=== PATIENT | male | born 1950 | race Caucasian/White ===

== ENCOUNTER → 2017-02-22 | Outpatient (REF) | payer MEDICARE, OTHER ==
[2017-02-22 12:40] LABS: ALBUMIN 3.7 GM/DL (3.2-5.2)
[2017-02-22 13:30] LABS: BASO % 0.5 % (0.0-1.0); EOS # 0.3 K/mm3 (0.0-0.50); LARGE UNSTAINED CELL # 0.1 K/mm3 (0.0-0.4); LARGE UNSTAINED CELL % 1.2 % (0.0-4.0); LYMPH # 1.4 K/mm3 (1.5-4.5); LYMPH % 19.7 % (24.0-44.0); MEAN CORPUSCULAR HEMOGLOBIN 30.8 pg (27.0-33.0); MEAN CORPUSCULAR HGB CONC 33.1 g/dl (32.0-36.5); MONO # 0.5 K/mm3 (0.0-0.8); MONO % 7.1 % (0.0-5.0); NEUTROPHILS # 4.5 K/mm3 (1.8-7.7); NEUTROPHILS % 66.6 % (36.0-66.0); PLATELET COUNT, AUTOMATED 216 k/mm3 (150-450); RED CELL DISTRIBUTION WIDTH 13.6 % (11.5-14.5); WHITE BLOOD COUNT 6.8 K/mm3 (4.0-10.0)
== END ==
LOC: M LABDRAW1 11:33
PROVIDERS: ATTEND Orthopaedic Surgery
DX: Z01.818 Encounter for other preprocedural examination (principal); M17.12 Unilateral primary osteoarthritis, left knee; M25.569 Pain in unspecified knee; D63.8 Anemia in other chronic diseases classified elsewhere; N18.9 Chronic kidney disease, unspecified

== ENCOUNTER → 2017-03-15 | Outpatient (REF) | payer MEDICARE, OTHER | LOC: M LAB REF 16:41 | PROVIDERS: ATTEND Internal Medicine | DX: Z86.14 Personal history of Methicillin resistant Staphylococcus aureus infection (principal) ==

== ENCOUNTER 2017-10-02 18:00 | Emergency (ER) | payer MEDICARE, OTHER, BC ==
[~2017-10-02] VITALS: Ht 177.8 cm; Wt 88.6 kg
[2017-10-02] MEDS ORDERED: MELO15TA4 PO (18:10)
[2017-10-02] MEDS ORDERED: BACL10TA2 PO (18:10)
[2017-10-02] MEDS ORDERED: MOME50SP (18:10)
[2017-10-02] MEDS ORDERED: AMBI5TAB PO (18:10)
[2017-10-02] MEDS ORDERED: SYMB80INH INH (18:10)
[2017-10-02] MEDS ORDERED: AMLO-310 PO (18:10)
[2017-10-02] MEDS ORDERED: LYRI200C PO (18:10)
[2017-10-02] MEDS ORDERED: PROAAER10 INH (18:10)
[2017-10-02 19:45] LABS: BASO % 0.5 % (0.0-1.0); EOS # 0.2 10^3/uL (0.0-0.50); EOS % 2.7 % (0.0-3.0); IMMATURE GRANULOCYTE % 0.2 % (0-0); LYMPH # 1.3 10^3/uL (1.5-4.5); LYMPH % 14.8 % (24.0-44.0); MEAN CORPUSCULAR HEMOGLOBIN 30.8 pg (27.0-33.0); MEAN CORPUSCULAR HGB CONC 33.8 g/dl (32.0-36.5); MEAN CORPUSCULAR VOLUME 90.9 fl (80.0-96.0); MONO # 0.6 10^3/uL (0.0-0.8); MONO % 6.9 % (0.0-5.0); NEUTROPHILS # 6.5 10^3/uL (1.8-7.7); NEUTROPHILS % 74.9 % (36.0-66.0); PLATELET COUNT, AUTOMATED 242 10^3/uL (150-450); RED CELL DISTRIBUTION WIDTH 14.7 % (11.5-14.5); WHITE BLOOD COUNT 8.7 10^3/uL (4.0-10.0)
[2017-10-02] MEDS ORDERED: GASTROGRAFIN SOLUTION 30ML PO ONE (19:50)
[2017-10-02 19:56] LABS: ALBUMIN 3.8 GM/DL (3.2-5.2); ALBUMIN/GLOBULIN RATIO 1.06 (1.00-1.93); ALKALINE PHOSPHATASE 111 U/L (45-117); ALT/SGPT 27 U/L (12-78); AMYLASE 32 U/L (25-115); ANION GAP 9 MEQ/L (8-16); AST/SGOT 27 U/L (7-37); BILIRUBIN,DIRECT 0.2 MG/DL (0.0-0.2); BILIRUBIN,TOTAL 0.6 MG/DL (0.2-1.0); BLOOD UREA NITROGEN 15 MG/DL (7-18); CALCIUM LEVEL 8.8 MG/DL (8.8-10.2); CARBON DIOXIDE LEVEL 27 MEQ/L (21-32); CHLORIDE LEVEL 103 MEQ/L (98-107); GLOMERULAR FILTRATION RATE > 60.0 (>49); GLUCOSE, FASTING 104 MG/DL (80-110); POTASSIUM SERUM 4.2 MEQ/L (3.5-5.1); SODIUM LEVEL 139 MEQ/L (136-145); TOTAL PROTEIN 7.4 GM/DL (6.4-8.2)
[2017-10-02] MEDS ORDERED: GASTROGRAFIN SOLUTION 30ML (Q9963) PO ONE (20:20)
[2017-10-02] MEDS ORDERED: ISOVUE-370 76% 100ML VIAL (Q9967) As Ordered ONE (20:25)
--- NOTE | 2017-10-02 21:40 | REPUSA ---
CT of the abdomen and pelvis with contrast Clinical statement: Pain. Technique: Multiple axial CT images were obtained from the base of the lungs through the floor of the pelvis utilizing 5 mm axial slices after administration of nonionic intravenous contrast. Coronal an d sagittal reconstructions were also obtained. No comparison is available. Findings: Chest: The visualized lung bases are clear. Abdomen: The liver, spleen, pancreas, and adrenal glands are unremarkable. There is a 1.8 cm simple c yst in the anterior left kidney. Numerous small gallstones are seen within the gallbladder. No perich olecystic inflammatory changes are seen. There is no evidence of biliary ductal dilatation. The aorta is within normal limits. There is no evidence of abdominal lymphadenopathy or ascites. Pelvis: The bowel is unremarkable, with no obstructive or inflammatory changes. The urinary bladder i s within normal limits. The other pelvic structures appear grossly intact. There is no evidence of pe lvic lymphadenopathy or ascites. Bones: There are no suspicious osseous abnormalities seen. Severe multilevel degenerative disc diseas e is seen throughout the lumbar spine. Bilateral hip arthroplasties are in place. Impression: 1. No acute obstructive or inflammatory bowel changes. 2. No evidence of hydronephrosis. Simple left renal cyst. 3. Cholelithiasis, without evidence of acute cholecystitis. 4. 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 Bilateral hip art hroplasties are intact.
[2017-10-02 22:18] VITALS: BP 140/77
--- NOTE | 2017-10-03 05:53 | ECGEPIP ---
Stationary ECG Study [place] - ED Test Date: 2017-10-02 Pat Name: Janel AYALA Department: Room: - Gender: M Patient Registration Specialist: sb : 1950 Requested By: Des Owens Order Number: [id number] Reading MD: Des Dinero Measurements Intervals [place] Rate: 85 P: 34 NV: 183 QRS: -17 QRSD: 104 T: 8 QT: 366 QTc: 438 Interpretive Statements SINUS RHYTHM NO PRIORS FOR COMPARISON Electronically Signed On 10-03-2017 5:53:18 EST by Des Dinero
== END 2017-10-02 22:25 | disposition home or self-care (01) ==
LOC: M ED 18:00
DX: K80.20 Calculus of gallbladder without cholecystitis without obstruction (principal)
CPT/HCPCS: 74177; 80048; 80076; 82150; 82550; 82553; 83690; 84484; 85025; 93005; 99284; Q9963; Q9967

== ENCOUNTER 2017-11-24 09:03 | Day surgery (SDC) | payer MEDICARE, BC, OTHER ==
[2017-11-24] MEDS ORDERED: NS 1,000 ML IV (09:30)
[2017-11-24] MEDS ORDERED: LIDOCAINE 2% INJ 100 MG/5 ML SDV (FOR ANES.) As Ordered (10:43)
[2017-11-24] MEDS ORDERED: PROPOFOL 200 MG/20 ML VIAL As Ordered (10:43)
== END 2017-11-24 11:13 | disposition home or self-care (01) ==
LOC: M OPP 09:03
DX: R10.13 Epigastric pain (principal); K21.9 Gastro-esophageal reflux disease without esophagitis; K80.20 Calculus of gallbladder without cholecystitis without obstruction; I10 Essential (primary) hypertension; M19.90 Unspecified osteoarthritis, unspecified site; M54.5 Low back pain; J45.909 Unspecified asthma, uncomplicated; Z79.82 Long term (current) use of aspirin; Z79.899 Other long term (current) drug therapy; Z96.641 Presence of right artificial hip joint; Z96.642 Presence of left artificial hip joint; Z91.048 Other nonmedicinal substance allergy status
CPT/HCPCS: 43235

== ENCOUNTER → 2018-02-09 | Outpatient (REF) | payer MEDICARE, OTHER ==
[2018-02-11 00:06] LABS: CHROMIUM PLASMA 2.5 ug/L (0.1-2.1)
[2018-02-11 00:06] LABS: PLASMA COBALT 2.4 ug/L (0.0-0.9)
== END ==
LOC: M LABDRAW1 09:59
DX: T56.2X1A Toxic effect of chromium and its compounds, accidental (unintentional), initial encounter (principal); T56.891A Toxic effect of other metals, accidental (unintentional), initial encounter; X58.XXXA Exposure to other specified factors, initial encounter; Y92.89 Other specified places as the place of occurrence of the external cause
CPT/HCPCS: 82495

== ENCOUNTER → 2020-05-19 | Outpatient (REF) | payer MEDICARE, OTHER ==
[~2020-05-19] MED LIST: AMBI5TAB PO; AMLO-360 PO; BACL10TA2 PO; COLA100C5 PO; LYRI200C PO; MELO15TA28 PO; MOME50SP; PROAAER10 INH; SYMB80INH INH; TYLE650T35 PO
[2020-05-21 18:07] LABS: CHROMIUM PLASMA 3.1 ug/L (0.1-2.1)
== END ==
LOC: M LAB REF 12:16
PROVIDERS: ATTEND Internal Medicine
DX: M25.559 Pain in unspecified hip (principal); T56.891A Toxic effect of other metals, accidental (unintentional), initial encounter; T56.2X1A Toxic effect of chromium and its compounds, accidental (unintentional), initial encounter

== ENCOUNTER → 2020-07-09 | Outpatient (CLI) | payer MEDICARE, BC, OTHER ==
[~2020-07-09] MED LIST changes: +ACET650T61 PO; -TYLE650T35 PO
== END ==
LOC: M LABSMTC 10:00
PROVIDERS: ATTEND Pain Medicine Pain Medicine
DX: Z20.828 Contact with and (suspected) exposure to other viral communicable diseases (principal)
CPT/HCPCS: C9803; U0003

== ENCOUNTER → 2020-10-28 | Outpatient (CLI) | payer SELFPAY | LOC: M LABSMTC 09:55 | PROVIDERS: ATTEND Pediatrics | DX: Z11.59 Encounter for screening for other viral diseases (principal) ==

== ENCOUNTER → 2021-01-23 | Outpatient (CLI) | payer MEDICARE, BC, OTHER | LOC: M LABSMTC 09:35 | PROVIDERS: ATTEND Physical Medicine & Rehabilitation | DX: Z11.52 Encounter for screening for COVID-19 (principal) ==

== ENCOUNTER → 2021-04-23 | Outpatient (CLI) | payer MEDICARE, BC, OTHER ==
--- NOTE | 2021-04-23 12:13 | REP ---
INDICATION: MODERATE PERSISTENT ASTHMA, UNCOMPLICATED COMPARISON: 02/22/2006 TECHNIQUE: PA and lateral. FINDINGS: The mediastinum and cardiac silhouette are normal. The lung reno are clear and without acute consolidation, effusion, or pneumothorax. The skeletal structures are intact and normal. IMPRESSION: No acute cardiopulmonary process. <Electronically signed by Lokesh De La Cruz > 04/23/21 [id number]
== END ==
LOC: M RAD 11:50
PROVIDERS: ATTEND Internal Medicine Pulmonary Disease
DX: J45.40 Moderate persistent asthma, uncomplicated (principal)

== ENCOUNTER → 2021-07-17 | Outpatient (CLI) | payer MEDICARE, BC, OTHER ==
[~2021-07-17] MED LIST changes: +PANT40TA29 PO; +SUCR1TA PO
== END ==
LOC: M LABSMTC 09:40
PROVIDERS: ATTEND Anesthesiology
DX: Z01.818 Encounter for other preprocedural examination (principal); Z20.822 Contact with and (suspected) exposure to COVID-19

== ENCOUNTER 2021-07-22 09:48 | Day surgery (SDC) | payer MEDICARE, BC, OTHER ==
[~2021-07-22] VITALS: Ht 175.3 cm; Wt 87.7 kg
[~2021-07-22 09:48] MED LIST changes: +LIDOCAINE 2% 100MG/5ML SDV (FOR ANES.) As Ordered ONE; +NS 1,000 ML IV ONE; +propofoL 200 MG/20 ML VIAL As Ordered ONE
--- NOTE | 2021-07-22 11:31 | ROOR ---
Patient Name: Janel Jc Procedure Date: 07/22/2021 11:12 AM Date of : 1950 Age: 71 Room: [facility] Gender: Male Note Status: Finalized Procedure: Upper GI endoscopy Indications: Melena Providers: DO Chevy Borja MD: KELLY ESCALANTE JR, MD Requesting Provider: Medicines: Propofol per Anesthesia Complications: No immediate complications. Procedure: Pre-Anesthesia Assessment: - Prior to the procedure, a History and Physical was performed, and patient medications and allergies were reviewed. The patient is competent. The risks and benefits of the procedure and the sedation options and risks were discussed with the patient. All questions were answered and informed consent was obtained. Patient identification and proposed procedure were verified by the physician, the nurse, the route delivery service driver and the ophthalmology technician in the endoscopy suite. Mental Status Examination: alert and oriented. Airway Examination: normal oropharyngeal airway and neck mobility. Respiratory Examination: clear to auscultation. CV Examination: normal. Prophylactic Antibiotics: The patient does not require prophylactic antibiotics. Prior Anticoagulants: The patient has taken no previous anticoagulant or antiplatelet agents. ASA Grade Assessment: II - A patient with mild systemic disease. After reviewing the risks and benefits, the patient was deemed in satisfactory condition to undergo the procedure. The anesthesia plan was to use monitored anesthesia care (MAC). Immediately prior to administration of medications, the patient was re-assessed for adequacy to receive sedatives. The heart rate, respiratory rate, oxygen saturations, blood pressure, adequacy of pulmonary ventilation, and response to care were monitored throughout the procedure. The physical status of the patient was re-assessed after the procedure. The Endoscope was introduced through the mouth, and advanced to the second part of duodenum. The upper GI endoscopy was accomplished without difficulty. The patient tolerated the procedure well. Findings: One non-bleeding cratered duodenal ulcer was found in the duodenal bulb. Biopsies were taken with a cold forceps for histology. This was biopsied with a cold forceps for histology. Estimated blood loss was minimal. Impression: - Non-bleeding duodenal ulcer. Biopsied. Recommendation: - Patient has a contact number available for emergencies. The signs and symptoms of potential delayed complications were discussed with the patient. Return to normal activities tomorrow. Written discharge instructions were provided to the patient. - Await pathology results. - Return to my office at appointment to be scheduled. Procedure Code(s): --- Professional --- 86802, Esophagogastroduodenoscopy, flexible, transoral; with biopsy, single or multiple Diagnosis Code(s): --- Professional --- K26.9, Duodenal ulcer, unspecified as acute or chronic, without hemorrhage or perforation K92.1, Melena (includes Hematochezia) CPT copyright 2019 [employer]. All rights reserved. The codes documented in this report are preliminary and upon brewmaster review may be revised to meet current compliance requirements. Gabe Sinha DO 07/22/2021 11:30:47 AM Electronically signed by Gabe Sinha DO Number of Addenda: 0 Note Initiated On: 07/22/2021 11:12 AM Estimated Blood Loss: Estimated blood loss was minimal.
[2021-07-22 12:01] VITALS: BP 159/84
== END 2021-07-22 12:03 | disposition home or self-care (01) ==
LOC: M OPP 09:48
PROVIDERS: ATTEND Surgery
DX: K26.9 Duodenal ulcer, unspecified as acute or chronic, without hemorrhage or perforation (principal); K92.1 Melena; R12 Heartburn; Z79.899 Other long term (current) drug therapy; Z88.8 Allergy status to other drugs, medicaments and biological substances; Z91.048 Other nonmedicinal substance allergy status

== ENCOUNTER → 2022-04-29 | Outpatient (REF) | payer MEDICARE, OTHER ==
[~2022-04-29] MED LIST changes: -LIDOCAINE 2% 100MG/5ML SDV (FOR ANES.) As Ordered ONE; -MOME50SP; +NASO50SP3; -NS 1,000 ML IV ONE; -propofoL 200 MG/20 ML VIAL As Ordered ONE
[2022-05-06 11:10] LABS: CHROMIUM PLASMA 2.5 ug/L (0.1-2.1)
== END ==
LOC: M LABDRWCV 15:18
PROVIDERS: ATTEND Physician Assistant Surgical
DX: T56.2X1A Toxic effect of chromium and its compounds, accidental (unintentional), initial encounter (principal); T56.891A Toxic effect of other metals, accidental (unintentional), initial encounter; Z96.649 Presence of unspecified artificial hip joint

== ENCOUNTER → 2023-08-26 | Outpatient (REF) | payer MEDICARE, BC, OTHER | LOC: M LAB REF 16:28 | PROVIDERS: ATTEND Internal Medicine | DX: A40.0 Sepsis due to streptococcus, group A (principal); L03.031 Cellulitis of right toe ==

== ENCOUNTER → 2023-08-26 | Outpatient (CLI) | payer MEDICARE, BC, OTHER | LOC: M WHC 13:00 | PROVIDERS: ATTEND Internal Medicine | DX: M79.661 Pain in right lower leg (principal); R22.41 Localized swelling, mass and lump, right lower limb ==

== ENCOUNTER → 2023-09-01 | Outpatient (REF) | payer MEDICARE, OTHER | LOC: M LAB REF 12:01 | PROVIDERS: ATTEND Internal Medicine | DX: A40.0 Sepsis due to streptococcus, group A (principal); L03.031 Cellulitis of right toe ==

== ENCOUNTER → 2023-09-22 | Outpatient (REF) | payer MEDICARE, OTHER | LOC: M LAB REF 13:13 | PROVIDERS: ATTEND Internal Medicine | DX: L03.031 Cellulitis of right toe (principal) ==

== ENCOUNTER → 2023-10-04 | Outpatient (CLI) | payer MEDICARE, BC, OTHER | LOC: M RAD 11:02 | PROVIDERS: ATTEND Podiatrist Foot & Ankle Surgery | DX: I73.89 Other specified peripheral vascular diseases (principal); I70.201 Unspecified atherosclerosis of native arteries of extremities, right leg ==

== ENCOUNTER → 2023-10-25 | Outpatient (CLI) | payer MEDICARE, BC, OTHER | LOC: M RAD 11:41 | PROVIDERS: ATTEND Physician Assistant | DX: I73.9 Peripheral vascular disease, unspecified (principal); I83.009 Varicose veins of unspecified lower extremity with ulcer of unspecified site; L97.909 Non-pressure chronic ulcer of unspecified part of unspecified lower leg with unspecified severity; M79.604 Pain in right leg ==

== ENCOUNTER 2024-02-12 20:27 | Inpatient (IN) | payer MEDICARE, BC, OTHER ==
[~2024-02-12] VITALS: Ht 180.3 cm; Wt 93.3 kg
[2024-02-12 20:53] LABS: VENOUS BASE EXCESS 1.7 (-2.0-2.0); VENOUS HCO3 25.4 MMOL/L (23.0-27.0); VENOUS O2 SATURATION 89.7 % (60.0-80.0); VENOUS PARTIAL PRESSURE CO2 37.2 mmHg (38.0-50.0); VENOUS PARTIAL PRESSURE O2 55.1 mmHg (30.0-50.0); VENOUS PH 7.453 UNITS (7.330-7.430); VENOUS STANDARD HCO3 25.8 MMOL/L; VENOUS TOTAL CO2 26.6 MMOL/L (24.0-28.0)
[2024-02-12] MEDS: ACETAMINOPHEN TAB 650MG DOSE (2X325MG) PO ONE (20:53)
[2024-02-12 20:59] LABS: BASO % 0.3 % (0.0-1.0); EOS # 0.1 10^3/uL (0.0-0.5); EOS % 0.3 % (0.0-3.0); HEMATOCRIT 38.6 % (42.0-52.0); HEMOGLOBIN 13.4 g/dl (13.5-17.5); LYMPH # 0.6 10^3/uL (1.5-5.0); LYMPH % 4.2 % (24.0-44.0); MEAN CORPUSCULAR HEMOGLOBIN 30.8 pg (27.0-33.0); MEAN CORPUSCULAR HGB CONC 34.7 g/dl (32.0-36.5); MEAN CORPUSCULAR VOLUME 88.7 fl (80.0-96.0); MONO # 0.9 10^3/uL (0.0-0.8); MONO % 6.3 % (2.0-8.0); NEUTROPHILS # 12.7 10^3/uL (1.5-8.5); NEUTROPHILS % 88.2 % (36.0-66.0); PLATELET COUNT, AUTOMATED 195 10^3/uL (150-450); RED BLOOD COUNT 4.35 10^6/uL (4.30-6.10); WHITE BLOOD COUNT 14.4 10^3/uL (4.0-10.0)
[2024-02-12] MEDS: diphenhydrAMINE 25MG CAP PO SCH (21:00)
[2024-02-12 21:09] LABS: APPEARANCE, URINE CLEAR (CLEAR); BACTERIA, URINE AUTO NEGATIVE (NEGATIVE); BILIRUBIN, URINE AUTO NEGATIVE (NEGATIVE); BLOOD, URINE BLOOD NEGATIVE (NEGATIVE); COLOR, URINE YELLOW (YELLOW); GLUCOSE, URINE (UA) AUTO NEGATIVE (NEGATIVE); KETONE, URINE AUTO TRACE mg/dL (NEGATIVE); LEUKOCYTE ESTERASE, URINE AUTO NEGATIVE (NEGATIVE); MUCUS, URINE SMALL (NEGATIVE); NITRITE, URINE AUTO NEGATIVE (NEGATIVE); PROTEIN, URINE AUTO 1+ mg/dL (NEGATIVE); RBC, URINE AUTO 1 /HPF (0-3); SPECIFIC GRAVITY URINE AUTO 1.019 (1.002-1.035); SQUAMOUS EPITHELIAL CELL UR AU 0 /HPF (0-6); UROBILINOGEN, URINE AUTO 0.2 mg/dL (0.0-2.0); WBC, URINE AUTO 0 /HPF (0-3)
[2024-02-12 21:11] LABS: INR 1.09; PARTIAL THROMBOPLASTIN TIME 29.7 SECONDS (24.8-34.2); PROTHROMBIN TIME 13.8 SECONDS (12.5-14.5)
[2024-02-12 21:35] LABS: CK-MB VALUE MASS < 1.0 NG/ML (<3.6)
[2024-02-12 21:36] LABS: AMYLASE 37 U/L (30-118)
[2024-02-12 21:37] LABS: ALBUMIN 3.4 G/DL (3.2-5.2); ALKALINE PHOSPHATASE 80 U/L (46-116); ALT/SGPT 18 U/L (7.0-40); AST/SGOT 25 U/L (<34); BILIRUBIN,DIRECT 0.5 MG/DL (<0.4); BILIRUBIN,TOTAL 1.8 MG/DL (0.3-1.2); BLOOD UREA NITROGEN 27 MG/DL (9-23); CALCIUM LEVEL 8.5 MG/DL (8.3-10.6); CARBON DIOXIDE LEVEL 26 MMOL/L (20-31); CHLORIDE LEVEL 104 MMOL/L (98-107); CREATININE FOR GFR 0.63 MG/DL (0.70-1.30); GLOMERULAR FILTRATION RATE > 60.0 (>42); GLUCOSE, FASTING 126 MG/DL (74-106); POTASSIUM SERUM 4.2 MMOL/L (3.5-5.1); SODIUM LEVEL 133 MMOL/L (136-145); TOTAL PROTEIN 6.6 G/DL (5.7-8.2)
[2024-02-12 21:40] LABS: CPK CREATINE PHOSPHOKINASE 133 U/L (46-171); MB/CK RELATIVE INDEX 0.75 (< OR =4)
[2024-02-12 21:43] LABS: PROCALCITONIN 0.15 ng/ml
[2024-02-12] MEDS ORDERED: ISOVUE-370 76% 100ML VIAL As Ordered ONE (22:54)
[2024-02-12] MEDS ORDERED: VANCOMYCIN HCL 1,500 MG in IV FLUID PLACE HOLDER 1 EA IV ONE (23:20)
[2024-02-12] MEDS: UNRESOLVED CLARIFICATION ENTRY XX STA (23:22)
[2024-02-12] MEDS: VANCOMYCIN HCL 750 MG, VIAL MATE ADAPTER 1 EACH in D5W 250 ML IV ONE (23:30)
[2024-02-13] MEDS: NS 1,000 ML IV ONE ×2 (00:04→00:05)
[2024-02-13] MEDS: PIPERACILLIN/TAZOBACTAM SOD 4.5 GM in D5W MINI-BAG PLUS 50 ML IV ONE (00:41)
[2024-02-13] MEDS: VANCOMYCIN HCL 750 MG, VIAL MATE ADAPTER 1 EACH in D5W 250 ML IV ONE (00:42)
[2024-02-13] MEDS ORDERED: BENA25CA4 PO (01:12)
[2024-02-13] MEDS ORDERED: ALBU8.5H INH (01:12)
[2024-02-13] MEDS ORDERED: MOME17SP NS (01:12)
[2024-02-13] MEDS ORDERED: LORA-622 PO (01:12)
[2024-02-13] MEDS ORDERED: LOTR52CA PO (01:12)
[2024-02-13] MEDS ORDERED: FAMO40TA3 PO (01:12)
[2024-02-13] MEDS ORDERED: HOME MED LIST COMPLETE! XX SCH (01:15)
[2024-02-13] MEDS: MORPHINE 2 MG/ML 1ML VIAL IV ONE (02:58)
[2024-02-13] MEDS ORDERED: ALBUTEROL 90 MCG/ACT 8GM HFA INHALER INH PRN (03:10)
[2024-02-13] MEDS ORDERED: VANCOMYCIN HCL 1,250 MG, VIAL MATE ADAPTER 1 EACH in D5W 250 ML IV SCH (03:10)
[2024-02-13] MEDS ORDERED: ONDANSETRON 4MG 2ML VIAL IV PRN (03:10)
[2024-02-13] MEDS: ACETAMINOPHEN TAB 650MG DOSE (2X325MG) PO ONE (04:06)
[2024-02-13] MEDS: NS 1,000 ML IV SCH (05:21)
[2024-02-13] MEDS: NORCO, ANEXSIA 5/325MG TABLET (HYDROcodone/ACETAMINOPHEN) PO PRN (05:25)
[2024-02-13 05:26] VITALS: BP 114/67; TEMP 101.6; O2SAT 96
[2024-02-13 06:27] VITALS: TEMP 101.3
[2024-02-13] MEDS ORDERED: ACETAMINOPHEN *IV* 1,000 MG in IV 1 EA IV ONE (07:00)
[2024-02-13] MEDS: SYMBICORT 80/4.5MCG INHALER 6GM INH SCH (07:54)
[2024-02-13] MEDS: ALBUTEROL SULFATE 2.5MG/0.5ML INH NEB SOLN NEB SCH (07:55)
[2024-02-13] MEDS: PREGABALIN 100 MG CAP (LYRICA) PO SCH (08:42)
[2024-02-13] MEDS: AZITHROMYCIN 250MG TABLET PO SCH (08:42)
[2024-02-13] MEDS: PANTOPRAZOLE 40MG TAB (PROTONIX) PO SCH (08:42)
[2024-02-13] MEDS: HEPARIN SOD (PORCINE) 5000UNITS/ML 1ML VIAL/SYRINGE SC SCH (08:42)
[2024-02-13] MEDS: SENOKOT S TAB PO SCH (08:42)
[2024-02-13] MEDS: KETOROLAC 30 MG/ML 1ML VIAL IV ONE (08:42)
[2024-02-13] MEDS: cefTRIAXone SOD 1 GM in D5W MINI-BAG PLUS 50 ML IV SCH (08:43)
[2024-02-13 08:52] LABS: BASO # 0.1 10^3/uL (0.0-0.2); BASO % 0.3 % (0.0-1.0); EOS % 0.1 % (0.0-3.0); HEMATOCRIT 32.1 % (42.0-52.0); LYMPH # 0.6 10^3/uL (1.5-5.0); LYMPH % 3.3 % (24.0-44.0); MEAN CORPUSCULAR HEMOGLOBIN 31.1 pg (27.0-33.0); MEAN CORPUSCULAR HGB CONC 34.6 g/dl (32.0-36.5); MEAN CORPUSCULAR VOLUME 89.9 fl (80.0-96.0); MONO # 0.6 10^3/uL (0.0-0.8); MONO % 3.8 % (2.0-8.0); NEUTROPHILS # 15.5 10^3/uL (1.5-8.5); NEUTROPHILS % 91.8 % (36.0-66.0); PLATELET COUNT, AUTOMATED 166 10^3/uL (150-450); RED BLOOD COUNT 3.57 10^6/uL (4.30-6.10); WHITE BLOOD COUNT 16.9 10^3/uL (4.0-10.0)
[2024-02-13 08:58] LABS: HEMOGLOBIN 11.1 g/dl (13.5-17.5)
[2024-02-13] MEDS ORDERED: amLODIPine 5 MG TAB PO SCH (09:00)
[2024-02-13] MEDS ORDERED: BENAZEPRIL 20 MG TAB PO SCH (09:00)
[2024-02-13 09:20] LABS: BLOOD UREA NITROGEN 18 MG/DL (9-23); CALCIUM LEVEL 7.6 MG/DL (8.3-10.6); CARBON DIOXIDE LEVEL 25 MMOL/L (20-31); CHLORIDE LEVEL 105 MMOL/L (98-107); CREATININE FOR GFR 0.57 MG/DL (0.70-1.30); GLOMERULAR FILTRATION RATE > 60.0 (>42); GLUCOSE, FASTING 154 MG/DL (74-106); SODIUM LEVEL 135 MMOL/L (136-145)
[2024-02-13] MEDS: VANCOMYCIN HCL 1,000 MG, VIAL MATE ADAPTER 1 EACH in D5W 250 ML IV SCH (09:41)
[2024-02-13] MEDS: ALBUTEROL SULFATE 2.5MG/0.5ML INH NEB SOLN NEB ONE (13:13)
[2024-02-13 14:00] VITALS: BP 113/70; TEMP 98; O2SAT 97
[2024-02-13] MEDS: ACETAMINOPHEN TAB 650MG DOSE (2X325MG) PO PRN (20:22)
[2024-02-13 20:25] VITALS: BP 118/70; TEMP 100.3; O2SAT 97
[2024-02-13] MEDS ORDERED: ACETAMINOPHEN 650MG ER TAB (TYLENOL ARTHRITIS) PO SCH (21:00)
[2024-02-14 00:56] VITALS: TEMP 97.6
[2024-02-14 05:00] VITALS: BP 120/70; TEMP 98.1; O2SAT 95
[2024-02-14 08:12] LABS: BASO # 0.1 10^3/uL (0.0-0.2); BASO % 0.5 % (0.0-1.0); EOS # 0.6 10^3/uL (0.0-0.5); EOS % 5.7 % (0.0-3.0); HEMATOCRIT 31.6 % (42.0-52.0); HEMOGLOBIN 10.6 g/dl (13.5-17.5); LYMPH # 0.5 10^3/uL (1.5-5.0); LYMPH % 4.8 % (24.0-44.0); MEAN CORPUSCULAR HEMOGLOBIN 30.8 pg (27.0-33.0); MEAN CORPUSCULAR HGB CONC 33.5 g/dl (32.0-36.5); MEAN CORPUSCULAR VOLUME 91.9 fl (80.0-96.0); MONO # 0.7 10^3/uL (0.0-0.8); MONO % 6.8 % (2.0-8.0); NEUTROPHILS # 8.7 10^3/uL (1.5-8.5); NEUTROPHILS % 81.6 % (36.0-66.0); PLATELET COUNT, AUTOMATED 153 10^3/uL (150-450); RED BLOOD COUNT 3.44 10^6/uL (4.30-6.10); WHITE BLOOD COUNT 10.7 10^3/uL (4.0-10.0)
[2024-02-14 08:42] LABS: BLOOD UREA NITROGEN 18 MG/DL (9-23); CALCIUM LEVEL 7.8 MG/DL (8.3-10.6); CARBON DIOXIDE LEVEL 27 MMOL/L (20-31); CHLORIDE LEVEL 103 MMOL/L (98-107); CREATININE FOR GFR 0.52 MG/DL (0.70-1.30); GLOMERULAR FILTRATION RATE > 60.0 (>42); GLUCOSE, FASTING 132 MG/DL (74-106); POTASSIUM SERUM 3.8 MMOL/L (3.5-5.1); SODIUM LEVEL 134 MMOL/L (136-145)
[2024-02-14] MEDS: VANCOMYCIN HCL 500 MG in D5W MINI-BAG PLUS 100 ML IV ONE (11:09)
[2024-02-14] MEDS: ALBUTEROL SULFATE 2.5MG/0.5ML INH NEB SOLN NEB PRN (13:58)
[2024-02-14 14:00] VITALS: BP 121/70; TEMP 98.6; O2SAT 98
[2024-02-14 15:51] VITALS: TEMP 100
[2024-02-14] MEDS: LevoFLOXacin 750 MG TABLET PO SCH (16:23)
[2024-02-14 16:52] VITALS: TEMP 99.9
[2024-02-14 20:02] VITALS: BP 120/69; TEMP 98.8; O2SAT 95
[2024-02-14] MEDS: VANCOMYCIN HCL 750 MG, VIAL MATE ADAPTER 1 EACH in D5W 250 ML IV SCH (21:50)
[2024-02-14] MEDS: VANCOMYCIN HCL 500 MG in D5W MINI-BAG PLUS 100 ML IV SCH (23:11)
[2024-02-15 04:56] VITALS: BP 123/72; TEMP 99.9; O2SAT 95
[2024-02-15 06:16] LABS: BASO % 0.5 % (0.0-1.0); EOS # 0.5 10^3/uL (0.0-0.5); EOS % 5.3 % (0.0-3.0); HEMATOCRIT 32.7 % (42.0-52.0); HEMOGLOBIN 11.1 g/dl (13.5-17.5); LYMPH # 0.4 10^3/uL (1.5-5.0); LYMPH % 4.3 % (24.0-44.0); MEAN CORPUSCULAR HEMOGLOBIN 30.7 pg (27.0-33.0); MEAN CORPUSCULAR HGB CONC 33.9 g/dl (32.0-36.5); MEAN CORPUSCULAR VOLUME 90.3 fl (80.0-96.0); MONO # 0.8 10^3/uL (0.0-0.8); MONO % 9.2 % (2.0-8.0); NEUTROPHILS # 7.1 10^3/uL (1.5-8.5); NEUTROPHILS % 80.4 % (36.0-66.0); PLATELET COUNT, AUTOMATED 175 10^3/uL (150-450); RED BLOOD COUNT 3.62 10^6/uL (4.30-6.10); WHITE BLOOD COUNT 8.9 10^3/uL (4.0-10.0)
[2024-02-15 07:50] LABS: BLOOD UREA NITROGEN 9 MG/DL (9-23); CALCIUM LEVEL 8.4 MG/DL (8.3-10.6); CARBON DIOXIDE LEVEL 28 MMOL/L (20-31); CHLORIDE LEVEL 100 MMOL/L (98-107); CREATININE FOR GFR 0.52 MG/DL (0.70-1.30); GLOMERULAR FILTRATION RATE > 60.0 (>42); GLUCOSE, FASTING 105 MG/DL (74-106); POTASSIUM SERUM 3.7 MMOL/L (3.5-5.1); SODIUM LEVEL 135 MMOL/L (136-145)
[2024-02-15] MEDS: FUROSEMIDE 40MG/4ML VIAL IV SCH (08:49)
[2024-02-15] MEDS: HYALURONIDASE 15UNIT/ML 1ML SYRINGE (AMPHADASE) SC ONE (11:23)
[2024-02-15] MEDS: LINEZOLID 600MG TABLET (ZYVOX) PO ONE (12:11)
[2024-02-15 14:00] VITALS: BP 127/70; TEMP 97.9; O2SAT 93
[2024-02-15] MEDS ORDERED: MAALOX 30 ML SUSP *UDC PO PRN (21:15)
[2024-02-15 22:00] VITALS: BP 118/75; TEMP 98.6; O2SAT 95
[2024-02-16 06:00] VITALS: BP 120/72; TEMP 98.3; O2SAT 96
[2024-02-16 06:09] LABS: BASO % 0.4 % (0.0-1.0); EOS # 0.6 10^3/uL (0.0-0.5); EOS % 7.2 % (0.0-3.0); HEMATOCRIT 32.9 % (42.0-52.0); HEMOGLOBIN 11.2 g/dl (13.5-17.5); LYMPH # 0.4 10^3/uL (1.5-5.0); LYMPH % 4.7 % (24.0-44.0); MEAN CORPUSCULAR HEMOGLOBIN 30.8 pg (27.0-33.0); MEAN CORPUSCULAR VOLUME 90.4 fl (80.0-96.0); NEUTROPHILS # 6.2 10^3/uL (1.5-8.5); PLATELET COUNT, AUTOMATED 188 10^3/uL (150-450); RED BLOOD COUNT 3.64 10^6/uL (4.30-6.10); WHITE BLOOD COUNT 8.2 10^3/uL (4.0-10.0)
[2024-02-16 06:34] LABS: BLOOD UREA NITROGEN 10 MG/DL (9-23); CALCIUM LEVEL 8.1 MG/DL (8.3-10.6); CARBON DIOXIDE LEVEL 29 MMOL/L (20-31); CHLORIDE LEVEL 102 MMOL/L (98-107); CREATININE FOR GFR 0.53 MG/DL (0.70-1.30); GLOMERULAR FILTRATION RATE > 60.0 (>42); GLUCOSE, FASTING 104 MG/DL (74-106); POTASSIUM SERUM 3.5 MMOL/L (3.5-5.1); SODIUM LEVEL 138 MMOL/L (136-145)
[2024-02-16] MEDS: ceFAZolin SOD 2 GM in IV 1 EA IV SCH (09:51)
[2024-02-16 14:00] VITALS: BP_SYST 109; BP_SYST 122; BP_DIAS 72; TEMP 96.3; TEMP 97.7; O2SAT 93; O2SAT 97
[2024-02-16] MEDS: LACTOBACILLUS ACIDOPHILUS CAP (BACID) PO SCH (18:27)
[2024-02-16 21:06] VITALS: BP 112/71; TEMP 97.7; O2SAT 96
[2024-02-17 06:00] VITALS: BP 111/71; TEMP 97.7; O2SAT 94
[2024-02-17 06:06] LABS: BASO # 0.1 10^3/uL (0.0-0.2); BASO % 0.5 % (0.0-1.0); EOS # 0.7 10^3/uL (0.0-0.5); EOS % 6.1 % (0.0-3.0); HEMATOCRIT 35.2 % (42.0-52.0); LYMPH # 0.7 10^3/uL (1.5-5.0); LYMPH % 5.8 % (24.0-44.0); MEAN CORPUSCULAR HEMOGLOBIN 30.5 pg (27.0-33.0); MEAN CORPUSCULAR HGB CONC 34.1 g/dl (32.0-36.5); MEAN CORPUSCULAR VOLUME 89.3 fl (80.0-96.0); MONO # 1.4 10^3/uL (0.0-0.8); MONO % 11.6 % (2.0-8.0); NEUTROPHILS # 8.8 10^3/uL (1.5-8.5); NEUTROPHILS % 75.1 % (36.0-66.0); PLATELET COUNT, AUTOMATED 217 10^3/uL (150-450); RED BLOOD COUNT 3.94 10^6/uL (4.30-6.10); WHITE BLOOD COUNT 11.7 10^3/uL (4.0-10.0)
[2024-02-17 06:33] LABS: BLOOD UREA NITROGEN 13 MG/DL (9-23); CALCIUM LEVEL 8.1 MG/DL (8.3-10.6); CARBON DIOXIDE LEVEL 30 MMOL/L (20-31); CHLORIDE LEVEL 103 MMOL/L (98-107); CREATININE FOR GFR 0.64 MG/DL (0.70-1.30); GLOMERULAR FILTRATION RATE > 60.0 (>42); GLUCOSE, FASTING 106 MG/DL (74-106); POTASSIUM SERUM 3.9 MMOL/L (3.5-5.1); SODIUM LEVEL 139 MMOL/L (136-145)
[2024-02-17] MEDS ORDERED: RISATAB3 PO (11:04)
[2024-02-17] MEDS ORDERED: CEPH500C PO (11:05)
[2024-02-17 14:00] VITALS: TEMP 97.9; O2SAT 95
== END 2024-02-17 14:35 | disposition home or self-care (01) | DRG 862 ==
LOC: M ED 20:27 → M ED INP 20:28 → ENRESERV 02-13 03:24 → OBSVTOIN 02-13 04:17 → M MSPAV 02-13 05:05
PROVIDERS: ADMIT Internal Medicine; ATTEND Internal Medicine Nephrology
PROC: B246ZZZ Ultrasonography of Right and Left Heart (ICD-10-PCS; principal; 2024-02-14)
DX: T81.41XA Infection following a procedure, superficial incisional surgical site, initial encounter (principal); A41.9 Sepsis, unspecified organism; J18.9 Pneumonia, unspecified organism; L03.115 Cellulitis of right lower limb; L97.819 Non-pressure chronic ulcer of other part of right lower leg with unspecified severity; Y83.8 Other surgical procedures as the cause of abnormal reaction of the patient, or of later complication, without mention of misadventure at the time of the procedure; J45.40 Moderate persistent asthma, uncomplicated; I10 Essential (primary) hypertension; K21.9 Gastro-esophageal reflux disease without esophagitis; I83.018 Varicose veins of right lower extremity with ulcer other part of lower leg; M19.90 Unspecified osteoarthritis, unspecified site; G89.29 Other chronic pain; M54.9 Dorsalgia, unspecified; I35.0 Nonrheumatic aortic (valve) stenosis; I73.9 Peripheral vascular disease, unspecified; J40 Bronchitis, not specified as acute or chronic; L57.0 Actinic keratosis; B95.61 Methicillin susceptible Staphylococcus aureus infection as the cause of diseases classified elsewhere; I87.2 Venous insufficiency (chronic) (peripheral); Z79.1 Long term (current) use of non-steroidal anti-inflammatories (NSAID); Z79.899 Other long term (current) drug therapy; Z88.8 Allergy status to other drugs, medicaments and biological substances; Z91.048 Other nonmedicinal substance allergy status; Z96.643 Presence of artificial hip joint, bilateral; Z98.1 Arthrodesis status; Z96.653 Presence of artificial knee joint, bilateral; Z98.42 Cataract extraction status, left eye; Z86.14 Personal history of Methicillin resistant Staphylococcus aureus infection

== ENCOUNTER 2024-03-20 13:24 | Inpatient (IN) | payer MEDICARE, BC ==
[~2024-03-20] VITALS: Ht 175.3 cm; Wt 96.1 kg
[~2024-03-20 13:24] MED LIST changes: +ALBU8.5H INH; +BENA25CA4 PO; +CEPH500C PO; +FAMO40TA3 PO; +LORA-622 PO; +LOTR52CA PO; +MOME17SP NS; +RISATAB3 PO
[2024-03-20 14:09] LABS: BASO % 0.2 % (0.0-1.0); EOS # 0.1 10^3/uL (0.0-0.5); EOS % 0.3 % (0.0-3.0); HEMATOCRIT 36.4 % (42.0-52.0); HEMOGLOBIN 12.3 g/dl (13.5-17.5); LYMPH # 0.4 10^3/uL (1.5-5.0); LYMPH % 2.2 % (24.0-44.0); MEAN CORPUSCULAR HEMOGLOBIN 30.8 pg (27.0-33.0); MEAN CORPUSCULAR HGB CONC 33.8 g/dl (32.0-36.5); MONO # 0.5 10^3/uL (0.0-0.8); MONO % 3.1 % (2.0-8.0); NEUTROPHILS # 16.4 10^3/uL (1.5-8.5); NEUTROPHILS % 93.7 % (36.0-66.0); PLATELET COUNT, AUTOMATED 153 10^3/uL (150-450); WHITE BLOOD COUNT 17.5 10^3/uL (4.0-10.0)
[2024-03-20] MEDS: NS 500 ML IV ONE ×2 (14:31→17:42)
[2024-03-20] MEDS: NS 1,000 ML IV SCH ×2 (14:31→19:46)
[2024-03-20 14:37] LABS: ALKALINE PHOSPHATASE 74 U/L (46-116); ALT/SGPT 20 U/L (7.0-40); AST/SGOT 30 U/L (<34); BILIRUBIN,DIRECT 0.3 MG/DL (<0.4); BLOOD UREA NITROGEN 19 MG/DL (9-23); CALCIUM LEVEL 8.2 MG/DL (8.3-10.6); CARBON DIOXIDE LEVEL 25 MMOL/L (20-31); CHLORIDE LEVEL 103 MMOL/L (98-107); CREATININE FOR GFR 0.54 MG/DL (0.70-1.30); GLOMERULAR FILTRATION RATE > 60.0 (>42); GLUCOSE, FASTING 89 MG/DL (74-106); POTASSIUM SERUM 3.8 MMOL/L (3.5-5.1); SODIUM LEVEL 138 MMOL/L (136-145)
[2024-03-20 14:37] LABS: INR 1.02; PARTIAL THROMBOPLASTIN TIME 21.5 SECONDS (24.8-34.2); PROTHROMBIN TIME 13.1 SECONDS (12.5-14.5)
[2024-03-20 14:43] LABS: PROCALCITONIN 1.72 ng/ml
[2024-03-20] MEDS ORDERED: ISOVUE-370 76% 100ML VIAL As Ordered ONE (16:05)
[2024-03-20] MEDS: DOXYCYCLINE HYCLATE 100MG TABLET PO ONE (16:30)
[2024-03-20] MEDS: cefTRIAXone SOD 2 GM in D5W MINI-BAG PLUS 50 ML IV ONE (16:30)
[2024-03-20] MEDS ORDERED: LEVALBUTEROL 1.25MG 0.5ML CONCENTRATE NEB NEB ONE (16:50)
[2024-03-20] MEDS: ACETAMINOPHEN TAB 650MG DOSE (2X325MG) PO PRN (18:29)
[2024-03-20] MEDS: LACTOBACILLUS ACIDOPHILUS CAP (BACID) PO SCH (18:29)
[2024-03-20] MEDS ORDERED: LEVALBUTEROL 1.25MG 0.5ML CONCENTRATE NEB NEB PRN (18:45)
[2024-03-20] MEDS: LEVALBUTEROL 1.25MG 0.5ML CONCENTRATE NEB NEB SCH (19:22)
[2024-03-20 21:30] VITALS: BP 130/74; TEMP 98.5; O2SAT 97
[2024-03-20] MEDS: DOXYCYCLINE HYCLATE 100MG TABLET PO SCH (21:56)
[2024-03-20] MEDS ORDERED: ACET-897 PO (22:15)
[2024-03-20] MEDS ORDERED: MOME13HF7 INH (22:15)
[2024-03-20] MEDS ORDERED: BENA-8 PO (22:15)
[2024-03-20] MEDS ORDERED: HOME MED LIST COMPLETE! XX SCH (22:20)
[2024-03-20] MEDS: SYMBICORT 80/4.5MCG INHALER 6GM INH SCH (22:42)
[2024-03-20] MEDS: PREGABALIN 100 MG CAP (LYRICA) PO SCH (23:04)
[2024-03-21] VITALS (10 sets, daily range): BP systolic 120–156; BP diastolic 72–83; TEMP 97.8–102.6; O2SAT 93–96
[2024-03-21 02:54] LABS: ABG BASE EXCESS -1.4 (-2.0-2.0); ABG HCO3 21.3 MMOL/L (22.0-26.0); ABG O2 SATURATION 95.5 % (95.0-99.0); ABG PARTIAL PRESSURE CO2 29.9 mmHg (35.0-45.0); ABG PARTIAL PRESSURE O2 73.7 mmHg (75.0-100.0); ABG STANDARD HCO3 23.3 MMOL/L. (22.0-26.0); ABG TOTAL CO2 22.2 MMOL/L (23.0-31.0); ABG pH (ARTERIAL) 7.471 UNITS (7.350-7.450)
[2024-03-21 03:52] LABS: HEMATOCRIT 34.2 % (42.0-52.0); HEMOGLOBIN 11.7 g/dl (13.5-17.5); MEAN CORPUSCULAR HEMOGLOBIN 30.9 pg (27.0-33.0); MEAN CORPUSCULAR HGB CONC 34.2 g/dl (32.0-36.5); MEAN CORPUSCULAR VOLUME 90.2 fl (80.0-96.0); PLATELET COUNT, AUTOMATED 159 10^3/uL (150-450); RED BLOOD COUNT 3.79 10^6/uL (4.30-6.10); WHITE BLOOD COUNT 22.1 10^3/uL (4.0-10.0)
[2024-03-21 04:24] LABS: PROCALCITONIN 10.89 ng/ml
[2024-03-21 04:25] LABS: ALBUMIN 2.8 G/DL (3.2-5.2); ALKALINE PHOSPHATASE 59 U/L (46-116); ALT/SGPT 27 U/L (7.0-40); AST/SGOT 60 U/L (<34); BILIRUBIN,TOTAL 0.9 MG/DL (0.3-1.2); BLOOD UREA NITROGEN 14 MG/DL (9-23); CALCIUM LEVEL 7.8 MG/DL (8.3-10.6); CARBON DIOXIDE LEVEL 24 MMOL/L (20-31); CHLORIDE LEVEL 102 MMOL/L (98-107); CREATININE FOR GFR 0.56 MG/DL (0.70-1.30); GLOMERULAR FILTRATION RATE > 60.0 (>42); GLUCOSE, FASTING 132 MG/DL (74-106); POTASSIUM SERUM 3.7 MMOL/L (3.5-5.1); SODIUM LEVEL 133 MMOL/L (136-145); TOTAL PROTEIN 6.4 G/DL (5.7-8.2)
[2024-03-21] MEDS ORDERED: PIPERACILLIN/TAZOBACTAM SOD 3.375 GM in D5W MINI-BAG PLUS 50 ML IV SCH (07:25)
[2024-03-21] MEDS: PIPERACILLIN/TAZOBACTAM SOD 4.5 GM in D5W MINI-BAG PLUS 50 ML IV SCH (08:09)
[2024-03-21] MEDS: FAMOTIDINE 20 MG TAB PO SCH (08:10)
[2024-03-21] MEDS: PANTOPRAZOLE 40MG TAB (PROTONIX) PO SCH (08:10)
[2024-03-21] MEDS: ENOXAPARIN 40MG/0.4ML SYRINGE (J1650 PER 10MG) SC SCH (08:10)
[2024-03-21] MEDS ORDERED: cefTRIAXone SOD 2 GM in D5W MINI-BAG PLUS 50 ML IV SCH (17:00)
[2024-03-21] MEDS: KETOROLAC 30 MG/ML 1ML VIAL IV ONE (18:51)
[2024-03-21] MEDS: METOPROLOL TART 12.5 MG PER 1/2 TAB PO SCH (18:51)
[2024-03-21 19:28] LABS: ALBUMIN 2.6 G/DL (3.2-5.2); ALKALINE PHOSPHATASE 66 U/L (46-116); ALT/SGPT 23 U/L (7.0-40); AST/SGOT 68 U/L (<34); BILIRUBIN,TOTAL 0.6 MG/DL (0.3-1.2); BLOOD UREA NITROGEN 14 MG/DL (9-23); CALCIUM LEVEL 7.8 MG/DL (8.3-10.6); CARBON DIOXIDE LEVEL 23 MMOL/L (20-31); CHLORIDE LEVEL 102 MMOL/L (98-107); CREATININE FOR GFR 0.74 MG/DL (0.70-1.30); GLOMERULAR FILTRATION RATE > 60.0 (>42); GLUCOSE, FASTING 167 MG/DL (74-106); MAGNESIUM LEVEL 1.4 MG/DL (1.8-2.4); PHOSPHORUS LEVEL 1.8 MG/DL (2.4-5.1); POTASSIUM SERUM 3.5 MMOL/L (3.5-5.1); SODIUM LEVEL 133 MMOL/L (136-145); TOTAL PROTEIN 6.4 G/DL (5.7-8.2)
[2024-03-22 00:28] VITALS: BP 127/68; TEMP 97.2; O2SAT 95
[2024-03-22 03:39] VITALS: BP 102/59; TEMP 97.6; O2SAT 93
[2024-03-22 06:59] LABS: HEMATOCRIT 33.3 % (42.0-52.0); HEMOGLOBIN 11.1 g/dl (13.5-17.5); MEAN CORPUSCULAR HEMOGLOBIN 30.2 pg (27.0-33.0); MEAN CORPUSCULAR HGB CONC 33.3 g/dl (32.0-36.5); MEAN CORPUSCULAR VOLUME 90.7 fl (80.0-96.0); PLATELET COUNT, AUTOMATED 127 10^3/uL (150-450); RED BLOOD COUNT 3.67 10^6/uL (4.30-6.10); WHITE BLOOD COUNT 9.1 10^3/uL (4.0-10.0)
[2024-03-22 07:26] LABS: ALBUMIN 2.4 G/DL (3.2-5.2); ALKALINE PHOSPHATASE 55 U/L (46-116); ALT/SGPT 25 U/L (7.0-40); AST/SGOT 55 U/L (<34); BILIRUBIN,TOTAL 0.5 MG/DL (0.3-1.2); BLOOD UREA NITROGEN 14 MG/DL (9-23); CALCIUM LEVEL 7.8 MG/DL (8.3-10.6); CARBON DIOXIDE LEVEL 25 MMOL/L (20-31); CHLORIDE LEVEL 104 MMOL/L (98-107); CREATININE FOR GFR 0.69 MG/DL (0.70-1.30); GLOMERULAR FILTRATION RATE > 60.0 (>42); GLUCOSE, FASTING 96 MG/DL (74-106); MAGNESIUM LEVEL 1.5 MG/DL (1.8-2.4); PHOSPHORUS LEVEL 2.7 MG/DL (2.4-5.1); POTASSIUM SERUM 3.5 MMOL/L (3.5-5.1); SODIUM LEVEL 136 MMOL/L (136-145)
[2024-03-22 07:53] VITALS: BP 107/58; TEMP 100.2; O2SAT 94
[2024-03-22] MEDS: MAG SULF 1GM/100ML (MAG RUN) 1 GM in IV 1 EA IV ONE (09:52)
[2024-03-22 12:00] VITALS: BP 126/64; TEMP 98.6; O2SAT 94
[2024-03-22] MEDS: MIRALAX *UNIT DOSE* 17GM PACKET PO PRN (12:28)
[2024-03-22] MEDS: DOCUSATE SODIUM 100MG CAPSULE PO SCH (12:28)
[2024-03-22 16:00] VITALS: BP 138/74; TEMP 98.6; O2SAT 100
[2024-03-22] MEDS: cefTRIAXone SOD 2 GM in D5W MINI-BAG PLUS 50 ML IV SCH (18:35)
[2024-03-22 19:51] VITALS: BP_SYST 104; BP_SYST 132; BP_DIAS 49; BP_DIAS 56; TEMP 97.8; O2SAT 92; O2SAT 96
[2024-03-22] MEDS: METOPROLOL TART 12.5 MG PER 1/2 TAB PO SCH (19:56)
[2024-03-23 03:27] VITALS: BP 145/84; TEMP 97.3; O2SAT 98
[2024-03-23 06:09] LABS: HEMOGLOBIN 10.4 g/dl (13.5-17.5); MEAN CORPUSCULAR HEMOGLOBIN 30.7 pg (27.0-33.0); MEAN CORPUSCULAR HGB CONC 33.5 g/dl (32.0-36.5); MEAN CORPUSCULAR VOLUME 91.4 fl (80.0-96.0); PLATELET COUNT, AUTOMATED 160 10^3/uL (150-450); RED BLOOD COUNT 3.39 10^6/uL (4.30-6.10); WHITE BLOOD COUNT 6.4 10^3/uL (4.0-10.0)
[2024-03-23 06:35] LABS: ALBUMIN 2.2 G/DL (3.2-5.2); ALKALINE PHOSPHATASE 52 U/L (46-116); ALT/SGPT 23 U/L (7.0-40); AST/SGOT 43 U/L (<34); BILIRUBIN,TOTAL 0.4 MG/DL (0.3-1.2); BLOOD UREA NITROGEN 8 MG/DL (9-23); CARBON DIOXIDE LEVEL 27 MMOL/L (20-31); CHLORIDE LEVEL 106 MMOL/L (98-107); CREATININE FOR GFR 0.52 MG/DL (0.70-1.30); GLOMERULAR FILTRATION RATE > 60.0 (>42); GLUCOSE, FASTING 95 MG/DL (74-106); MAGNESIUM LEVEL 1.6 MG/DL (1.8-2.4); POTASSIUM SERUM 3.5 MMOL/L (3.5-5.1); SODIUM LEVEL 140 MMOL/L (136-145); TOTAL PROTEIN 6.1 G/DL (5.7-8.2)
[2024-03-23 08:01] VITALS: BP 121/72; TEMP 98.1; O2SAT 98
[2024-03-23] MEDS: MAG SULF 1GM/100ML (MAG RUN) 1 GM in IV 1 EA IV ONE (09:16)
[2024-03-23] MEDS: MAGNESIUM OXIDE 400MG TAB (MAG-OX) PO SCH (09:17)
[2024-03-23] MEDS: ADVAIR HFA 230/21MCG INHALER INH SCH (11:18)
[2024-03-23 11:50] VITALS: BP 121/72
[2024-03-23] MEDS: BENAZEPRIL 20 MG TAB PO SCH (11:50)
[2024-03-23] MEDS ORDERED: RISATAB3 PO (15:50)
[2024-03-23] MEDS ORDERED: COLA100C5 PO (15:50)
[2024-03-23] MEDS ORDERED: AMOX500T PO (15:50)
== END 2024-03-23 17:04 | disposition home or self-care (01) | DRG 871 ==
LOC: M ED 13:24 → EDBD 13:24 → EDSEX 13:24 → M ED INP 17:43 → ENRESERV 20:01 → M MSPAV 21:20 → M PCU 03-21 19:59
PROVIDERS: ADMIT Internal Medicine; ATTEND Internal Medicine
DX: A40.9 Streptococcal sepsis, unspecified (principal); J18.9 Pneumonia, unspecified organism; I47.10 Supraventricular tachycardia, unspecified; I73.9 Peripheral vascular disease, unspecified; M19.90 Unspecified osteoarthritis, unspecified site; K21.9 Gastro-esophageal reflux disease without esophagitis; J45.40 Moderate persistent asthma, uncomplicated; I10 Essential (primary) hypertension; I35.0 Nonrheumatic aortic (valve) stenosis; L57.0 Actinic keratosis; G89.29 Other chronic pain; Z98.1 Arthrodesis status; Z98.41 Cataract extraction status, right eye; Z98.42 Cataract extraction status, left eye; Z96.611 Presence of right artificial shoulder joint; Z96.612 Presence of left artificial shoulder joint; Z96.653 Presence of artificial knee joint, bilateral; Z96.643 Presence of artificial hip joint, bilateral; Z79.1 Long term (current) use of non-steroidal anti-inflammatories (NSAID); Z79.899 Other long term (current) drug therapy; Z88.8 Allergy status to other drugs, medicaments and biological substances; Z91.048 Other nonmedicinal substance allergy status; R94.31 Abnormal electrocardiogram [ECG] [EKG]; E83.42 Hypomagnesemia; E83.39 Other disorders of phosphorus metabolism; A46 Erysipelas

== ENCOUNTER → 2024-04-03 | Outpatient (REF) | payer MEDICARE, BC ==
[~2024-04-03] MED LIST changes: +ACET-897 PO; +AMOX500T PO; +BENA-8 PO; +MOME13HF7 INH
== END ==
LOC: M LAB REF 11:45
PROVIDERS: ATTEND Internal Medicine
DX: M13.10 Monoarthritis, not elsewhere classified, unspecified site (principal)

== ENCOUNTER → 2024-04-04 | Outpatient (CLI) | payer MEDICARE, BC | LOC: M WUC 10:20 | PROVIDERS: ATTEND Internal Medicine | DX: M19.032 Primary osteoarthritis, left wrist (principal); S63.592A Other specified sprain of left wrist, initial encounter; X58.XXXA Exposure to other specified factors, initial encounter; Y92.9 Unspecified place or not applicable; Y93.9 Activity, unspecified; Y99.9 Unspecified external cause status ==

== ENCOUNTER → 2024-05-01 | Outpatient (CLI) | payer MEDICARE, BC ==
[~2024-05-01] MED LIST changes: +ACET-910 PO; +INDA1.253 PO; +LOSA50TA28 PO
[2024-05-10 14:10] LABS: CHROMIUM RBC None Detected mcg/L (.)
== END ==
LOC: M LAB 13:26
PROVIDERS: ATTEND Physician Assistant Surgical
DX: T56.2X4A Toxic effect of chromium and its compounds, undetermined, initial encounter (principal); Y93.9 Activity, unspecified; Y92.9 Unspecified place or not applicable; T56.891A Toxic effect of other metals, accidental (unintentional), initial encounter

== ENCOUNTER 2024-05-09 08:37 | Day surgery (SDC) | payer MEDICARE, BC ==
[~2024-05-09] VITALS: Ht 175.3 cm; Wt 88.5 kg
[~2024-05-09 08:37] MED LIST changes: -LOSA50TA28 PO
[2024-05-09] MEDS: NS 1,000 ML IV ONE (09:10)
[2024-05-09] MEDS ORDERED: LOSA50TA28 PO (09:14)
[2024-05-09] MEDS ORDERED: propofoL 200 MG/20 ML VIAL As Ordered ONE (09:31)
[2024-05-09 10:14] VITALS: TEMP 98
[2024-05-09 10:43] VITALS: BP 134/81; O2SAT 96
== END 2024-05-09 10:52 | disposition home or self-care (01) ==
LOC: M OPP 08:37
PROVIDERS: ATTEND Surgery
DX: K64.0 First degree hemorrhoids (principal); R19.5 Other fecal abnormalities; Z79.1 Long term (current) use of non-steroidal anti-inflammatories (NSAID); Z79.52 Long term (current) use of systemic steroids; Z79.899 Other long term (current) drug therapy; Z88.5 Allergy status to narcotic agent; Z91.048 Other nonmedicinal substance allergy status

== ENCOUNTER → 2024-05-11 | Outpatient (CLI) | payer MEDICARE, BC ==
[~2024-05-11] MED LIST changes: +ISOVUE-370 76% 100ML VIAL As Ordered ONE; +LOSA50TA28 PO
== END ==
LOC: M RAD 12:58
PROVIDERS: ATTEND Physician Assistant Medical
DX: R59.1 Generalized enlarged lymph nodes (principal)
CPT/HCPCS: 70491; Q9967

== ENCOUNTER → 2024-05-21 | Outpatient (CLI) | payer MEDICARE, BC ==
[~2024-05-21] MED LIST changes: -ISOVUE-370 76% 100ML VIAL As Ordered ONE; +LIDOCAINE 1% MDV 20ML VIAL As Ordered ONE
[2024-05-21 12:20] VITALS: TEMP 97.7
[2024-05-21 12:50] VITALS: BP 135/77; O2SAT 96
== END ==
LOC: M IRPRO 12:11
PROVIDERS: ATTEND Physician Assistant Medical
DX: R59.9 Enlarged lymph nodes, unspecified (principal)

== ENCOUNTER → 2024-06-11 | Outpatient (CLI) | payer MEDICARE, BC ==
[~2024-06-11] MED LIST changes: -LIDOCAINE 1% MDV 20ML VIAL As Ordered ONE
== END ==
LOC: M PLARAD 12:33
PROVIDERS: ATTEND Physician Assistant Medical
DX: R59.1 Generalized enlarged lymph nodes (principal); C07 Malignant neoplasm of parotid gland
CPT/HCPCS: 78815; A9552

== ENCOUNTER 2024-07-10 04:57 | Inpatient (IN) | payer MEDICARE, BC ==
[~2024-07-10] VITALS: Ht 180.3 cm; Wt 92.5 kg
[2024-07-10] MEDS ORDERED: NS 2,750 ML in IV 1 EA IV ONE (05:20)
[2024-07-10] MEDS ORDERED: KETOROLAC 30 MG/ML 1ML VIAL As Ordered ONE (05:25)
[2024-07-10 05:45] LABS: EOS % 2.2 % (0.0-3.0); HEMATOCRIT 34.5 % (42.0-52.0); HEMOGLOBIN 11.8 g/dl (13.5-17.5); LYMPH # 0.3 10^3/uL (1.5-5.0); MEAN CORPUSCULAR HEMOGLOBIN 30.1 pg (27.0-33.0); MEAN CORPUSCULAR HGB CONC 34.2 g/dl (32.0-36.5); MONO # 0.2 10^3/uL (0.0-0.8); MONO % 19.4 % (2.0-8.0); NEUTROPHILS % 48.3 % (36.0-66.0); PLATELET COUNT, AUTOMATED 171 10^3/uL (150-450); RED BLOOD COUNT 3.92 10^6/uL (4.30-6.10)
[2024-07-10 05:46] LABS: WHITE BLOOD COUNT 0.9 10^3/uL (4.0-10.0)
[2024-07-10 05:47] LABS: NEUTROPHILS # 0.5 10^3/uL (1.5-8.5)
[2024-07-10 05:49] LABS: APPEARANCE, URINE CLEAR (CLEAR); BACTERIA, URINE AUTO NEGATIVE (NEGATIVE); BILIRUBIN, URINE AUTO NEGATIVE (NEGATIVE); BLOOD, URINE BLOOD NEGATIVE (NEGATIVE); COLOR, URINE YELLOW (YELLOW); GLUCOSE, URINE (UA) AUTO NEGATIVE (NEGATIVE); KETONE, URINE AUTO NEGATIVE (NEGATIVE); LEUKOCYTE ESTERASE, URINE AUTO NEGATIVE (NEGATIVE); NITRITE, URINE AUTO NEGATIVE (NEGATIVE); PROTEIN, URINE AUTO NEGATIVE (NEGATIVE); RBC, URINE AUTO 2 /HPF (0-3); SPECIFIC GRAVITY URINE AUTO 1.014 (1.002-1.035); SQUAMOUS EPITHELIAL CELL UR AU 0 /HPF (0-6); UROBILINOGEN, URINE AUTO 0.2 mg/dL (0.0-2.0); WBC, URINE AUTO 1 /HPF (0-3)
[2024-07-10 05:56] LABS: INR 0.97; PARTIAL THROMBOPLASTIN TIME 26.2 SECONDS (24.8-34.2); PROTHROMBIN TIME 12.6 SECONDS (12.5-14.5)
[2024-07-10] MEDS: KETOROLAC 30 MG/ML 1ML VIAL IV ONE ×2 (05:57→14:55)
[2024-07-10 06:09] LABS: ALBUMIN 3.4 G/DL (3.2-5.2); ALKALINE PHOSPHATASE 79 U/L (46-116); ALT/SGPT 36 U/L (7.0-40); AMYLASE 40 U/L (30-118); AST/SGOT 31 U/L (<34); BILIRUBIN,DIRECT 0.3 MG/DL (<0.4); BILIRUBIN,TOTAL 0.9 MG/DL (0.3-1.2); BLOOD UREA NITROGEN 12 MG/DL (9-23); CALCIUM LEVEL 8.3 MG/DL (8.3-10.6); CARBON DIOXIDE LEVEL 27 MMOL/L (20-31); CHLORIDE LEVEL 101 MMOL/L (98-107); CREATININE FOR GFR 0.54 MG/DL (0.70-1.30); GLOMERULAR FILTRATION RATE > 60.0 (>42); GLUCOSE, FASTING 107 MG/DL (74-106); POTASSIUM SERUM 4.4 MMOL/L (3.5-5.1); SODIUM LEVEL 134 MMOL/L (136-145); TOTAL PROTEIN 6.7 G/DL (5.7-8.2)
[2024-07-10 06:16] LABS: PROCALCITONIN 0.26 ng/ml
[2024-07-10] MEDS ORDERED: OXYC-517 PO (06:17)
[2024-07-10] MEDS ORDERED: ISOVUE-370 76% 100ML VIAL As Ordered ONE (06:42)
[2024-07-10] MEDS: CEFEPIME HCL 2 GM in D5W MINI-BAG PLUS 50 ML IV ONE (07:44)
[2024-07-10] MEDS ORDERED: ACE65ERTAB PO (08:21)
[2024-07-10] MEDS ORDERED: ALBU2.5V10 INH (08:21)
[2024-07-10] MEDS ORDERED: HOME MED LIST COMPLETE! XX SCH (08:25)
[2024-07-10] MEDS ORDERED: FAMOTIDINE 20 MG TAB PO PRN (11:30)
[2024-07-10] MEDS ORDERED: IPRATROPIUM 0.5MG/ALBUTEROL 2.5MG INH SOL UD 3ML (DUONEB) NEB PRN (11:30)
[2024-07-10] MEDS: ENOXAPARIN 40MG/0.4ML SYRINGE (J1650 PER 10MG) SC SCH (11:37)
[2024-07-10] MEDS: VANCOMYCIN HCL 1,000 MG, VIAL MATE ADAPTER 1 EACH in D5W 250 ML IV ONE (11:37)
[2024-07-10] MEDS: LORATADINE 10 MG TAB PO SCH (12:02)
[2024-07-10] MEDS: NS 1,000 ML IV SCH (12:02)
[2024-07-10] MEDS: PANTOPRAZOLE 40MG TAB (PROTONIX) PO SCH (12:02)
[2024-07-10] MEDS: LOSARTAN 50MG TABLET PO SCH (12:03)
[2024-07-10] MEDS: ACETAMINOPHEN *IV* 1,000 MG in IV 1 EA IV ONE (12:05)
[2024-07-10] MEDS: IPRATROPIUM 0.5MG/ALBUTEROL 2.5MG INH SOL UD 3ML (DUONEB) NEB SCH (12:23)
[2024-07-10] MEDS: VANCOMYCIN HCL 750 MG, VIAL MATE ADAPTER 1 EACH in D5W 250 ML IV ONE (12:43)
[2024-07-10] MEDS: CEFEPIME HCL 2 GM in D5W MINI-BAG PLUS 50 ML IV SCH (14:04)
[2024-07-10 16:51] VITALS: TEMP 98.2; O2SAT 95
[2024-07-10 17:00] VITALS: BP_SYST 169; BP_SYST 96; BP_DIAS 54; BP_DIAS 89
[2024-07-10 17:01] VITALS: BP 100/56
[2024-07-10 17:02] VITALS: BP 126/48
[2024-07-10 19:39] VITALS: BP 104/55; TEMP 99.1; O2SAT 93
[2024-07-10] MEDS: VANCOMYCIN HCL 750 MG, VIAL MATE ADAPTER 1 EACH in D5W 250 ML IV SCH (20:00)
[2024-07-10] MEDS: SYMBICORT 80/4.5MCG INHALER 6GM INH SCH (20:45)
[2024-07-10] MEDS: VANCOMYCIN HCL 500 MG in D5W MINI-BAG PLUS 100 ML IV SCH (21:34)
[2024-07-10] MEDS: diphenhydrAMINE 50MG CAP PO SCH (21:34)
[2024-07-10] MEDS: PREGABALIN 100 MG CAP (LYRICA) PO SCH (21:34)
[2024-07-10 23:33] VITALS: BP 134/72; TEMP 101.4; O2SAT 93
[2024-07-10] MEDS: ACETAMINOPHEN 500 MG TAB PO PRN (23:57)
[2024-07-11] VITALS (14 sets, daily range): BP systolic 90–130; BP diastolic 57–78; TEMP 97–101.3; O2SAT 93–97
[2024-07-11 07:49] LABS: HEMATOCRIT 32.1 % (42.0-52.0); HEMOGLOBIN 10.7 g/dl (13.5-17.5); MEAN CORPUSCULAR HEMOGLOBIN 30.3 pg (27.0-33.0); MEAN CORPUSCULAR HGB CONC 33.3 g/dl (32.0-36.5); MEAN CORPUSCULAR VOLUME 90.9 fl (80.0-96.0); PLATELET COUNT, AUTOMATED 136 10^3/uL (150-450); RED BLOOD COUNT 3.53 10^6/uL (4.30-6.10); WHITE BLOOD COUNT 4.8 10^3/uL (4.0-10.0)
[2024-07-11 08:00] LABS: VANCOMYCIN LEVEL TROUGH 18.1 UG/ML (10.0-20.0)
[2024-07-11 08:06] LABS: BLOOD UREA NITROGEN 19 MG/DL (9-23); CALCIUM LEVEL 7.9 MG/DL (8.3-10.6); CARBON DIOXIDE LEVEL 25 MMOL/L (20-31); CHLORIDE LEVEL 102 MMOL/L (98-107); CREATININE FOR GFR 0.61 MG/DL (0.70-1.30); GLOMERULAR FILTRATION RATE > 60.0 (>42); GLUCOSE, FASTING 125 MG/DL (74-106); POTASSIUM SERUM 3.8 MMOL/L (3.5-5.1); SODIUM LEVEL 133 MMOL/L (136-145)
[2024-07-11] MEDS: VANCOMYCIN HCL 1,000 MG, VIAL MATE ADAPTER 1 EACH in D5W 250 ML IV SCH (09:54)
[2024-07-11] MEDS: MELOXICAM (MOBIC) 7.5 MG TAB PO SCH (09:56)
[2024-07-11] MEDS ORDERED: MIRALAX *UNIT DOSE* 17GM PACKET PO PRN (10:05)
[2024-07-11] MEDS ORDERED: SENNA 8.6 MG TAB (SENOKOT) PO PRN (10:05)
[2024-07-11] MEDS: NS 1,000 ML IV ONE (10:20)
[2024-07-11] MEDS: NS 500 ML IV ONE (11:44)
[2024-07-11] MEDS: METOPROLOL 5 MG/5 ML VIAL IV STA (12:12)
[2024-07-11] MEDS: METOPROLOL TART 25 MG TABLET PO SCH (12:21)
[2024-07-11] MEDS: cefTRIAXone SOD 2 GM in D5W MINI-BAG PLUS 50 ML IV SCH (12:21)
[2024-07-11] MEDS: oxyCODONE 5MG TAB PO PRN (13:34)
[2024-07-11] MEDS: DIGOXIN 0.25 MG TAB PO STA (14:19)
[2024-07-11] MEDS: DIGOXIN INJ 0.5 MG/2 ML AMP IV STA (15:30)
[2024-07-11] MEDS: KETOROLAC 30 MG/ML 1ML VIAL IV ONE (17:32)
[2024-07-11] MEDS: IPRATROPIUM 0.02% SOLN 0.5MG 2.5ML NEB INH PRN (20:25)
[2024-07-11] MEDS: LEVALBUTEROL 1.25MG 0.5ML CONCENTRATE NEB INH PRN (20:26)
[2024-07-11] MEDS: APIXABAN 5 MG TAB (ELIQUIS) PO SCH (20:36)
[2024-07-11] MEDS: DIGOXIN INJ 0.5 MG/2 ML AMP IV ONE (22:10)
[2024-07-11] MEDS: BENZONATATE 100MG CAPSULE PO SCH (22:11)
[2024-07-11] MEDS ORDERED: KETOROLAC 30 MG/ML 1ML VIAL IV PRN (23:00)
[2024-07-12] VITALS (8 sets, daily range): BP systolic 104–128; BP diastolic 57–75; TEMP 97.1–100.2; O2SAT 95–98
[2024-07-12] MEDS: DIGOXIN INJ 0.5 MG/2 ML AMP IV ONE (05:31)
[2024-07-12] MEDS: DIGOXIN INJ 0.5 MG/2 ML AMP IV STA (07:48)
[2024-07-12 08:21] LABS: HEMATOCRIT 32.7 % (42.0-52.0); HEMOGLOBIN 11.1 g/dl (13.5-17.5); MEAN CORPUSCULAR HEMOGLOBIN 30.4 pg (27.0-33.0); MEAN CORPUSCULAR HGB CONC 33.9 g/dl (32.0-36.5); MEAN CORPUSCULAR VOLUME 89.6 fl (80.0-96.0); PLATELET COUNT, AUTOMATED 144 10^3/uL (150-450); RED BLOOD COUNT 3.65 10^6/uL (4.30-6.10); WHITE BLOOD COUNT 6.6 10^3/uL (4.0-10.0)
[2024-07-12 08:37] LABS: BLOOD UREA NITROGEN 13 MG/DL (9-23); CALCIUM LEVEL 7.9 MG/DL (8.3-10.6); CARBON DIOXIDE LEVEL 23 MMOL/L (20-31); CHLORIDE LEVEL 105 MMOL/L (98-107); CREATININE FOR GFR 0.51 MG/DL (0.70-1.30); GLOMERULAR FILTRATION RATE > 60.0 (>42); GLUCOSE, FASTING 120 MG/DL (74-106); MAGNESIUM LEVEL 1.4 MG/DL (1.8-2.4); POTASSIUM SERUM 3.9 MMOL/L (3.5-5.1); SODIUM LEVEL 135 MMOL/L (136-145)
[2024-07-12 08:42] LABS: ATYPICAL LYMPH 1 % (0-5); EOSINOPHILS 9 % (0-3); LYMPHOCYTES 6 % (16-44); MONOCYTES 4 % (0-5); NEUTROPHILS 66 % (28-66); PLATELET ESTIMATE NORMAL (NORMAL)
[2024-07-12] MEDS: MAG SULF 1GM/100ML (MAG RUN) 1 GM in IV 1 EA IV SCH (11:05)
[2024-07-13 03:25] VITALS: BP 124/72; TEMP 97.3; O2SAT 96
[2024-07-13 04:53] LABS: BASO % 0.2 % (0.0-1.0); EOS # 0.5 10^3/uL (0.0-0.5); HEMATOCRIT 31.5 % (42.0-52.0); HEMOGLOBIN 10.6 g/dl (13.5-17.5); LYMPH # 0.4 10^3/uL (1.5-5.0); LYMPH % 7.3 % (24.0-44.0); MEAN CORPUSCULAR HEMOGLOBIN 30.3 pg (27.0-33.0); MEAN CORPUSCULAR HGB CONC 33.7 g/dl (32.0-36.5); MONO # 0.3 10^3/uL (0.0-0.8); MONO % 6.5 % (2.0-8.0); NEUTROPHILS # 3.9 10^3/uL (1.5-8.5); NEUTROPHILS % 75.6 % (36.0-66.0); PLATELET COUNT, AUTOMATED 133 10^3/uL (150-450); WHITE BLOOD COUNT 5.2 10^3/uL (4.0-10.0)
[2024-07-13 04:54] LABS: HEMATOCRIT 31.3 % (42.0-52.0); HEMOGLOBIN 10.4 g/dl (13.5-17.5); MEAN CORPUSCULAR HEMOGLOBIN 29.9 pg (27.0-33.0); MEAN CORPUSCULAR HGB CONC 33.2 g/dl (32.0-36.5); MEAN CORPUSCULAR VOLUME 89.9 fl (80.0-96.0); PLATELET COUNT, AUTOMATED 139 10^3/uL (150-450); RED BLOOD COUNT 3.48 10^6/uL (4.30-6.10); WHITE BLOOD COUNT 5.3 10^3/uL (4.0-10.0)
[2024-07-13 05:13] LABS: BLOOD UREA NITROGEN 11 MG/DL (9-23); CARBON DIOXIDE LEVEL 24 MMOL/L (20-31); CHLORIDE LEVEL 106 MMOL/L (98-107); CREATININE FOR GFR 0.49 MG/DL (0.70-1.30); GLOMERULAR FILTRATION RATE > 60.0 (>42); GLUCOSE, FASTING 110 MG/DL (74-106); POTASSIUM SERUM 3.8 MMOL/L (3.5-5.1); SODIUM LEVEL 136 MMOL/L (136-145)
[2024-07-13 05:14] VITALS: BP 110/69; O2SAT 98
[2024-07-13 05:16] VITALS: BP 113/69
[2024-07-13 07:24] LABS: MAGNESIUM LEVEL 1.5 MG/DL (1.8-2.4)
[2024-07-13 07:48] VITALS: BP 128/65; TEMP 97.5; O2SAT 98
[2024-07-13] MEDS: DIGOXIN 0.25 MG TAB PO SCH (08:36)
[2024-07-13 12:00] VITALS: BP 130/70; TEMP 97.6; O2SAT 96
[2024-07-13 14:00] VITALS: BP_SYST 125; BP_SYST 130; BP_DIAS 70; BP_DIAS 82; TEMP 97.5; O2SAT 97
[2024-07-13] MEDS ORDERED: ELIQ5TAB PO (15:57)
[2024-07-13] MEDS ORDERED: DIGO0.123 PO (15:57)
[2024-07-13] MEDS ORDERED: METO50TA7 PO (15:57)
[2024-07-13] MEDS ORDERED: AMOX500T PO (15:59)
[2024-07-13] MEDS ORDERED: BENZ200C70 PO (16:00)
[2024-07-13] MEDS ORDERED: AMOXICILLIN 500 MG CAP PO SCH (21:00)
== END 2024-07-13 17:05 | disposition home or self-care (01) | DRG 872 ==
LOC: M ED 04:57 → EDBD 04:57 → M ED INP 10:58 → M PCU 16:43
PROVIDERS: ADMIT Internal Medicine; ATTEND Internal Medicine
PROC: B246ZZZ Ultrasonography of Right and Left Heart (ICD-10-PCS; principal; 2024-07-11)
DX: A40.1 Sepsis due to streptococcus, group B (principal); L03.115 Cellulitis of right lower limb; L97.518 Non-pressure chronic ulcer of other part of right foot with other specified severity; C79.9 Secondary malignant neoplasm of unspecified site; D84.9 Immunodeficiency, unspecified; D70.9 Neutropenia, unspecified; J44.9 Chronic obstructive pulmonary disease, unspecified; K21.9 Gastro-esophageal reflux disease without esophagitis; I10 Essential (primary) hypertension; J45.40 Moderate persistent asthma, uncomplicated; I35.0 Nonrheumatic aortic (valve) stenosis; M19.90 Unspecified osteoarthritis, unspecified site; L57.0 Actinic keratosis; I73.9 Peripheral vascular disease, unspecified; I83.90 Asymptomatic varicose veins of unspecified lower extremity; G89.29 Other chronic pain; M54.9 Dorsalgia, unspecified; Z86.14 Personal history of Methicillin resistant Staphylococcus aureus infection; I48.91 Unspecified atrial fibrillation; E11.621 Type 2 diabetes mellitus with foot ulcer; R50.81 Fever presenting with conditions classified elsewhere; E11.51 Type 2 diabetes mellitus with diabetic peripheral angiopathy without gangrene; Z79.1 Long term (current) use of non-steroidal anti-inflammatories (NSAID); Z91.048 Other nonmedicinal substance allergy status; Z88.8 Allergy status to other drugs, medicaments and biological substances; Z79.899 Other long term (current) drug therapy

== ENCOUNTER → 2024-07-13 | Outpatient (CLI) | payer MEDICARE, BC ==
[~2024-07-13] MED LIST changes: +ACE65ERTAB PO; +ALBU2.5V10 INH; +BENZ200C70 PO; +DIGO0.123 PO; +ELIQ5TAB PO; +METO50TA7 PO; +OXYC-517 PO
== END ==
LOC: M EKG 17:04 → M LAB 17:04
PROVIDERS: ATTEND Internal Medicine
DX: I48.91 Unspecified atrial fibrillation (principal)

== ENCOUNTER → 2024-08-15 | Outpatient (REF) | payer MEDICARE, BC ==
[2024-08-15 20:02] LABS: EOSINOPHILS 2 % (0-3); LYMPHOCYTES 8 % (16-44); MONOCYTES 7 % (0-5); NEUTROPHILS 82 % (28-66)
[2024-08-15 20:03] LABS: PLATELET ESTIMATE NORMAL (NORMAL)
[2024-08-15 20:04] LABS: ANISOCYTOSIS 1+
== END ==
LOC: M LAB REF 16:20
PROVIDERS: ATTEND Internal Medicine
DX: C80.1 Malignant (primary) neoplasm, unspecified (principal); D72.9 Disorder of white blood cells, unspecified

== ENCOUNTER → 2024-10-03 | Outpatient (CLI) | payer MEDICARE, BC ==
[~2024-10-03] MED LIST changes: +FLOM0.4C39 PO; +OXYB10TA23 PO; +PEMB100V2 IV
== END ==
LOC: M RAD 11:16
PROVIDERS: ATTEND Nurse Practitioner Family
DX: M47.817 Spondylosis without myelopathy or radiculopathy, lumbosacral region (principal); M85.80 Other specified disorders of bone density and structure, unspecified site; M51.360 Other intervertebral disc degeneration, lumbar region with discogenic back pain only

== ENCOUNTER 2024-10-10 10:09 | Day surgery (SDC) | payer MEDICARE, BC ==
[~2024-10-10] VITALS: Ht 175.3 cm; Wt 89.3 kg
[~2024-10-10 10:09] MED LIST changes: +NS 250 ML IV ONE
[2024-10-10] MEDS ORDERED: propofoL 200 MG/20 ML VIAL As Ordered ONE (11:22)
[2024-10-10 11:38] VITALS: TEMP 97.2
[2024-10-10 11:52] VITALS: BP 124/80; O2SAT 95
== END 2024-10-10 11:56 | disposition home or self-care (01) ==
LOC: M OPP 10:09
PROVIDERS: ATTEND Surgery
DX: K29.70 Gastritis, unspecified, without bleeding (principal); C79.89 Secondary malignant neoplasm of other specified sites; K21.9 Gastro-esophageal reflux disease without esophagitis; M19.90 Unspecified osteoarthritis, unspecified site; G62.9 Polyneuropathy, unspecified; J45.909 Unspecified asthma, uncomplicated; I48.91 Unspecified atrial fibrillation; Z88.8 Allergy status to other drugs, medicaments and biological substances; Z91.048 Other nonmedicinal substance allergy status; Z79.01 Long term (current) use of anticoagulants; Z79.899 Other long term (current) drug therapy; Z92.21 Personal history of antineoplastic chemotherapy

== ENCOUNTER → 2024-11-02 | Outpatient (CLI) | payer MEDICARE, BC ==
[~2024-11-02] MED LIST changes: -NS 250 ML IV ONE
[2024-11-02 18:41] LABS: RSV AMPLIFICATION NEGATIVE (NEGATIVE)
== END ==
LOC: M WUC 15:26
PROVIDERS: ATTEND Nurse Practitioner Family
DX: A41.9 Sepsis, unspecified organism (principal); R05.9 Cough, unspecified; R06.02 Shortness of breath

== ENCOUNTER 2024-11-07 18:10 | Emergency (ER) | payer MEDICARE, BC ==
[~2024-11-07] VITALS: Ht 160 cm; Wt 88.5 kg
[~2024-11-07 18:10] MED LIST changes: +MOME17SP NARES; -MOME17SP NS
[2024-11-07] MEDS ORDERED: ISOVUE-370 76% 100ML VIAL As Ordered ONE (18:41)
[2024-11-07 18:57] LABS: BASO % 0.6 % (0.0-1.0); EOS # 0.8 10^3/uL (0.0-0.5); EOS % 10.7 % (0.0-3.0); HEMATOCRIT 35.4 % (42.0-52.0); HEMOGLOBIN 11.8 g/dl (13.5-17.5); LYMPH # 1.3 10^3/uL (1.5-5.0); LYMPH % 18.1 % (24.0-44.0); MEAN CORPUSCULAR HEMOGLOBIN 30.7 pg (27.0-33.0); MEAN CORPUSCULAR HGB CONC 33.3 g/dl (32.0-36.5); MEAN CORPUSCULAR VOLUME 92.2 fl (80.0-96.0); MONO # 0.7 10^3/uL (0.0-0.8); MONO % 10.2 % (2.0-8.0); NEUTROPHILS # 4.3 10^3/uL (1.5-8.5); NEUTROPHILS % 60.1 % (36.0-66.0); PLATELET COUNT, AUTOMATED 225 10^3/uL (150-450); RED BLOOD COUNT 3.84 10^6/uL (4.30-6.10); WHITE BLOOD COUNT 7.1 10^3/uL (4.0-10.0)
[2024-11-07 19:16] LABS: CK-MB VALUE MASS 2.1 NG/ML (<3.6)
[2024-11-07 19:18] LABS: BLOOD UREA NITROGEN 16 MG/DL (9-23); CALCIUM LEVEL 8.9 MG/DL (8.3-10.6); CARBON DIOXIDE LEVEL 27 MMOL/L (20-31); CHLORIDE LEVEL 105 MMOL/L (98-107); CREATININE FOR GFR 0.58 MG/DL (0.70-1.30); GLOMERULAR FILTRATION RATE > 60.0 (>42); GLUCOSE, FASTING 111 MG/DL (74-106); INR 1.01; PARTIAL THROMBOPLASTIN TIME 33.1 SECONDS (24.8-34.2); PROTHROMBIN TIME 13.7 SECONDS (12.5-14.5); SODIUM LEVEL 141 MMOL/L (136-145)
[2024-11-07 19:22] LABS: CPK CREATINE PHOSPHOKINASE 139 U/L (46-171); MB/CK RELATIVE INDEX 1.51 (< OR =4)
[2024-11-07] MEDS: dexAMETHasone 20MG/5ML VIAL IV ONE (20:34)
[2024-11-07] MEDS ORDERED: ONDANSETRON 4MG 2ML VIAL As Ordered ONE (21:06)
[2024-11-07] MEDS: MORPHINE 4 MG/ML 1ML VIAL IV ONE (21:12)
[2024-11-07] MEDS: ONDANSETRON 4MG 2ML VIAL IV PRN (21:13)
[2024-11-07] MEDS ORDERED: METO50TA7 PO (22:52)
[2024-11-07] MEDS ORDERED: BENZ200C70 PO (22:52)
[2024-11-07] MEDS ORDERED: PREG100C2 PO (22:52)
[2024-11-07] MEDS ORDERED: ELIQ5TAB PO (22:52)
[2024-11-07] MEDS ORDERED: HOME MED LIST COMPLETE! XX SCH (22:55)
[2024-11-07] MEDS ORDERED: BENZONATATE 100MG CAPSULE PO PRN (23:45)
[2024-11-07] MEDS ORDERED: ALBUTEROL SULFATE 2.5MG/0.5ML INH NEB SOLN INH PRN (23:45)
[2024-11-07] MEDS ORDERED: ALBUTEROL 90 MCG/ACT 8GM HFA INHALER INH PRN (23:45)
[2024-11-08] MEDS: oxyCODONE 5MG TAB PO PRN (00:39)
[2024-11-08 02:51] VITALS: TEMP 97.8
[2024-11-08] MEDS: ACETAMINOPHEN 325 MG TAB PO PRN (04:58)
[2024-11-08 05:00] VITALS: BP 134/74; O2SAT 94
[2024-11-08] MEDS ORDERED: CEPHALEXIN 500 MG CAP PO SCH (09:00)
[2024-11-08] MEDS ORDERED: PREGABALIN 100 MG CAP (LYRICA) PO SCH ×2 (09:00→21:00)
[2024-11-08] MEDS ORDERED: PANTOPRAZOLE 40MG TAB (PROTONIX) PO SCH (09:00)
[2024-11-08] MEDS ORDERED: LORATADINE 10 MG TAB PO SCH (09:00)
[2024-11-08] MEDS ORDERED: METOPROLOL TART 50 MG TAB PO SCH (09:00)
[2024-11-08] MEDS ORDERED: TAMSULOSIN 0.4 MG CAP PO SCH (21:00)
[2024-11-08] MEDS ORDERED: oxyBUTYnin *DITROPAN XL* 5 MG TABCR PO SCH (21:00)
== END 2024-11-08 06:02 | disposition short-term general hospital (02) ==
LOC: EDBD 18:10 → M ED 18:10
DX: G45.9 Transient cerebral ischemic attack, unspecified (principal); G93.6 Cerebral edema; I10 Essential (primary) hypertension; J44.9 Chronic obstructive pulmonary disease, unspecified; K21.9 Gastro-esophageal reflux disease without esophagitis; Z88.8 Allergy status to other drugs, medicaments and biological substances; Z79.1 Long term (current) use of non-steroidal anti-inflammatories (NSAID); Z79.51 Long term (current) use of inhaled steroids; Z79.01 Long term (current) use of anticoagulants; Z79.899 Other long term (current) drug therapy
CPT/HCPCS: 70450; 70496; 70498; 71045; 80047; 80048; 82550; 82553; 84484; 85025; 85610; 85730; 93005; 93041; 94760; 96374; 96375; 99285; J1100; J2405; Q9967